=== PATIENT | male | born 1965 | race Caucasian/White ===

== ENCOUNTER → 2016-03-29 | Outpatient (CLI) | payer OTHER ==
--- NOTE | 2016-03-29 10:57 | CT ---
CT of the Lumbar Spine 1009 hours Clinical Indications: Low back pain. Follow-up L5-S1 fusion. Persistent back pain with leg numbness a nd tingling. Technique: Spiral imaging was obtained through the lumbar spine from T11 through the sacrum. Images were reconstructed thin slice axial and reconstructed in sagittal and coronal planes. The patient rep orts previous IV contrast ALLERGY. Dose reduction techniques were utilized. Findings: There is sacralization of the L5 segment with a rudimentary L5-S1 disk. Pedicle screws are in good position between L4 and L5 segments along with paraspinal rods. The hardware is intact. Sanjeev ectomy is noted at L4 and partial laminectomy at L5 segment levels. There is about 5 mm of anterior s ubluxation of L4 on L5. Lumbar vertebral bodies are of normal height without compression fractures. There are no lytic or sc lerotic osseous lesions. There is no significant scoliosis of the lumbar spine. T12-L1: Normal. L1-L2: Normal. L2-L3: Normal. L3-L4: Normal. L4-L5: Disk replacement material is present with bony fusion across the endplates. Laminectomy is no julissa posteriorly. There is mild left-sided neuroforaminal stenosis secondary to subluxation and small posterior lateral osteophytes with minimal narrowing noted on the right. There is no evidence of sof t tissue thickening around the dural sac or around the nerve roots. No abnormal fluid collections are seen in the laminectomy defect. L5-S1: There is a rudimentary L5-S1 disk without bulge or protrusion. Impression: 1. Sacralization of the L5 segment with rudimentary L5-S1 disk noted. 2. Pedicle screws and paraspinal rods in good position between L4 and L5 segments along with fusion a cross the disk space with disk replacement material in good position. 3. Laminectomy at L4 and partially at L5. 4. Mild anterior subluxation of L4 on L5 by about 5 mm.
--- NOTE | 2016-03-29 11:29 | DX ---
Lumbar spine AP and lateral with flexion and extension 4 views 1041 hours. History: Low back pain. Previous fusion. Findings: There is sacralization of the L5 segment. Pedicle screws and paraspinal rods are in good po sition between L4 and L5. The hardware appears to be intact. There is disk replacement material at L4 -L5 with partially bony fusion is suspected posteriorly. There is about 5 mm of anterior subluxation of L4 on L5. There are no additional subluxation with flexion and extension. Laminectomy is noted at L4 and partially at L5. Vertebral body heights are well-maintained. The remaining intervertebral disk spaces are normal from T12-L1 through L3-L4 through the L5-S1 disk is rudimentary. Impression: 1. Sacralization of the L5 segment. 2. Pedicle screws and paraspinal rods as well as disk replacement material associated with L4-L5 with laminectomy at L4 and partially at L5. 3. Mild anterior subluxation of L4 on L5 that is fused. 4. No change in subluxation with flexion and extension.
== END ==
LOC: FIMAGING 09:45
PROVIDERS: ATTEND Neurological Surgery
DX: Q76.49 Other congenital malformations of spine, not associated with scoliosis (principal); Z98.1 Arthrodesis status

== ENCOUNTER → 2017-11-13 | Outpatient (CLI) | payer OTHER | LOC: FIMAGING 09:11 → EDSTATUS 09:11 | PROVIDERS: ATTEND Nurse Practitioner | DX: M54.5 Low back pain (principal); Z98.1 Arthrodesis status ==